=== PATIENT | female | born 1995 | race Native Hawaiian/Other Pacific Islander ===

== ENCOUNTER 2021-06-21 13:47 | Emergency (ER) | payer OTHER ==
[~2021-06-21] VITALS: Ht 162.6 cm; Wt 77.1 kg
[2021-06-21 14:01] VITALS: TEMP 97
[2021-06-21 14:40] LABS: PLATELET COUNT 270 K/uL (152-353)
[2021-06-21 14:45] LABS: POTASSIUM 3.2 mmol/L (3.6-5.2)
[2021-06-21 15:02] LABS: PARTIAL THROMBOPLASTIN TIME 27.2 SECONDS (24.5-33.6)
[2021-06-21 15:14] VITALS: BP 114/71
== END 2021-06-21 15:34 | disposition home or self-care (01) ==
LOC: ED 13:47
PROVIDERS: Hospitalist
DX: T80.89XA Other complications following infusion, transfusion and therapeutic injection, initial encounter (principal); U07.1 COVID-19; Z3A.14 14 weeks gestation of pregnancy; T50.995A Adverse effect of other drugs, medicaments and biological substances, initial encounter; X58.XXXA Exposure to other specified factors, initial encounter; Y92.89 Other specified places as the place of occurrence of the external cause
CPT/HCPCS: 80053; 82550; 83880; 84484; 85027; 85610; 85730; 93005; 96360; 96374; 96375; 99284; J1200; J2405